=== PATIENT | female | born 1975 ===

== ENCOUNTER 2020-10-07 12:37 | Emergency (ER) | payer OTHER ==
[~2020-10-07] VITALS: Ht 162.6 cm; Wt 81.8 kg
[2020-10-07 12:41] VITALS: BP 141/84
[2020-10-07] MEDS ORDERED: TRAZ-252 PO (12:47)
[2020-10-07] MEDS ORDERED: GABA-1216 PO (12:47)
[2020-10-07] MEDS ORDERED: METF-960 PO (12:47)
[2020-10-07] MEDS ORDERED: INSNOV SQ (12:47)
[2020-10-07] MEDS ORDERED: INSLAN SQ (12:47)
[2020-10-07 14:49] LABS: GLUCOSE,POINT OF CARE 244 MG/DL (70-110)
[2020-10-07] MEDS ORDERED: KETOROLAC TROMETHAMINE 30 MG/ML VIAL IM ONE (15:15)
[2020-10-07] MEDS ORDERED: LIDOCAINE 5% TRANSDERMAL PATCH TD ONE (15:15)
== END 2020-10-07 18:19 | disposition home or self-care (01) ==
LOC: EMS 12:42
DX: M25.512 Pain in left shoulder (principal); F31.9 Bipolar disorder, unspecified; E11.9 Type 2 diabetes mellitus without complications; Z79.4 Long term (current) use of insulin
CPT/HCPCS: 82962; 96372; 99283; J1885